=== PATIENT | male | born 1995 | race Caucasian/White ===

== ENCOUNTER 2018-12-15 00:11 | Emergency (ER) | payer SELFPAY ==
[2018-12-15 00:47] LABS: ABSOLUTE BASOPHILS # (AUTO) 0.1 10^3/uL (0.0-0.2); ABSOLUTE EOSINOPHILS # (AUTO) 0.6 10^3/uL (0.0-0.6); ABSOLUTE LYMPHOCYTES (AUTO) 1.6 10^3/uL (0.5-4.7); ABSOLUTE MONOCYTES (AUTO) 1.2 10^3/uL (0.1-1.4); ABSOLUTE NEUT (AUTO) 7.6 10^3/uL (1.7-8.2); EOSINOPHILS % (AUTO) 5.3 % (0-6); HEMATOCRIT 42.5 % (37.9-51.0); LYMPHOCYTES % (AUTO) 14.5 % (13-45); MEAN CORPUSCULAR HEMOGLOBIN 31.9 pg (27.0-33.4); MEAN CORPUSCULAR HGB CONC 35.3 g/dL (32.0-36.0); MEAN CORPUSCULAR VOLUME 90 fl (80-97); MONOCYTES % (AUTO) 10.6 % (3-13); PLATELET COUNT 289 10^3/uL (150-450); SEGMENTED NEUTROPHILS % (AUTO) 68.6 % (42-78); TOTAL CELLS COUNTED % (AUTO) 100 %
[2018-12-15] MEDS ORDERED: METOCLOPRAMIDE HCL INJ/PF 10 MG/2 ML SDV IV ONE (00:54)
[2018-12-15] MEDS ORDERED: FAMOTIDINE INJ/PF 20 MG/2 ML SDV IV ONE (00:54)
[2018-12-15] MEDS ORDERED: NORMAL SALINE 1000 ML 1,000 ML IV ONE ×2 (00:54→01:56)
--- NOTE | 2018-12-15 00:59 | ER Document Report ---
ED General - General Chief Complaint: Abdominal Pain Stated Complaint: ABDOMINAL PAIN Time Seen by Provider: 12/15/18 00:34 Notes: Patient is a 23-year-old male without chronic medical problems, has a prior surgical history of an appendectomy in the remote past, presents with 4 days of epigastric and left upper quadrant abdominal pain with associated nausea, vomiting and diarrhea. Patient describes upper abdominal pain as being a cramping, burning, aching pain worsened dramatically by any attempt at eating. He states that if he eats head doubles him over and prompt vomiting. Has tried taking vitamins and Pepto-Bismol at home without any improvement. No history of similar symptoms in the past. Does not have a primary care physician. Has had bowel movements. States he has felt warm but no recorded fever at home. Past Medical History - General Information source: Patient - Social History Smoking Status: Never Smoker Frequency of alcohol use: None Drug Abuse: None Lives with: Alone Family History: Reviewed & Not Pertinent Review of Systems - Review of Systems Notes: Constitutional: Negative for fever. HENT: Negative for sore throat. Eyes: Negative for visual changes. Cardiovascular: Negative for chest pain. Respiratory: Negative for shortness of breath. Gastrointestinal: Positive for abdominal pain, vomiting and diarrhea Genitourinary: Negative for dysuria. Musculoskeletal: Negative for back pain. Skin: Negative for rash. Neurological: Negative for headaches, weakness or numbness. 10 point ROS negative except as marked above and in HPI. Physical Exam - Vital signs Vitals: Temp Pulse Resp BP Pulse Ox 98 F 107 H 21 H 150/81 H 96 12/15/18 00:24 12/15/18 00:24 12/15/18 00:24 12/15/18 00:24 12/15/18 00:24 Interpretation: Hypertensive, Tachycardic Notes: PHYSICAL EXAMINATION: GENERAL: Appears moderately unwell but in no acute distress HEAD: Atraumatic, normocephalic. EYES: Pupils equal round and reactive to light, extraocular movements intact, sclera anicteric, conjunctiva are normal. ENT: nares patent, oropharynx clear without exudates. Moderately dry mucous membranes. NECK: Normal range of motion, supple without lymphadenopathy LUNGS: Breath sounds clear to auscultation bilaterally and equal. No wheezes rales or rhonchi. HEART: Regular tachycardia without murmurs ABDOMEN: Soft, tenderness to palpation of the right upper quadrant, epigastric and left upper quadrant. No other localized areas of tenderness. Normoactive bowel sounds. No guarding, no rebound. No masses appreciated. EXTREMITIES: Normal range of motion, no pitting or edema. No cyanosis. NEUROLOGICAL: No focal neurological deficits. Moves all extremities spontaneously and on command. PSYCH: Normal mood, normal affect. SKIN: Mild pallor, clammy skin. No rashes or lesions. Course - Re-evaluation Re-evalutation: 12/15/18 00:58 Patient presents with upper abdominal pain, nausea and vomiting worsened by any attempt at eating. Abdominal exam shows focal tenderness the right upper quadrant and epigastrium without rebound or guarding. Patient is somewhat ill in appearance. Mildly tachycardic at time of initial assessment. Patient will undergo laboratory assessment, right upper quadrant ultrasound 12/15/18 01:26 Labs demonstrate marketed LFT derangements worrisome for possible choledocholithiasis. Ultrasound pending. 12/15/18 01:52 Right upper quadrant ultrasound without any evidence of cholecystitis or choledocholithiasis. It is possible patient could have developed an acute hepatitis such as hepatitis A particular given the picture of diarrhea with substantial LFT derangements. Hepatitis panel pending. Will discuss with the hospitalist for admission given the patient's degree of pain, vomiting, inability to tolerate oral intake and for trending of LFTs. 12/15/18 02:49 CT scan of the abdomen and pelvis unremarkable. Clinical history unlikely to be localized colitis, suspect this is artifact as radiologist as discussed. Most probable diagnosis at this point appears to be a viral hepatitis. This panel is pending. I did discuss with the hospitalist on-call Dr. Nehemiah Paniagua. He states that patient does not require hospitalization, conservative management as an outpatient is recommended. I believe this is a reasonable plan as patient has been able to tolerate oral intake, has primary care follow-up, and pain has been controlled here in the emergency department. I have strongly advised the patient that if his pain worsens, he has persistent vomiting, has any change in symptoms of any kind he is to return to the emergency room immediately. I also instructed them he is to follow-up with his primary doctor within 24 hours for a recheck of his abdomen. I have also asked that he have his liver functions retested. The patient denies any risk factors for hepatitis B or C, suspect possible hepatitis A. At this time will discharge with return precautions and follow-up recommendations. Verbal discharge instructions given a the bedside and opportunity for questions given. Medication warnings reviewed. Patient is in agreement with this plan and has verbalized understanding of return precautions and the need for primary care follow-up in the next 24 hours. - Vital Signs Vital signs: Temp Pulse Resp BP Pulse Ox 98 F 107 H 21 H 150/81 H 96 12/15/18 00:24 12/15/18 00:24 12/15/18 00:24 12/15/18 00:24 12/15/18 00:24 - Laboratory Result Diagrams: 12/15/18 00:40 12/15/18 00:40 Laboratory results interpreted by me: 12/15/18 12/15/18 12/15/18 00:40 00:40 01:10 WBC 11.0 H Glucose 114 H Total Bilirubin 3.2 H Direct Bilirubin 2.0 H AST 182 H ALT 326 H Alkaline Phosphatase 310 H Lipase 715.3 H Urine Bilirubin MODERATE H Urine Urobilinogen 4.0 H Urine Ascorbic Acid 20 H Discharge - Discharge Clinical Impression: Hepatitis, Nausea vomiting and diarrhea, Upper abdominal pain Condition: Good Disposition: HOME, SELF-CARE Additional Instructions: As we discussed today, your ultrasound and CT scan are normal. Your labs however do show abnormal changes to your liver functions as well as mild pancreatitis. This is likely due to a viral hepatitis. The labs for this are pending. If you develop worsening of your pain, become unable to tolerate flu ids, begin having fever of greater than 100.4 F, he developed a yellow discoloration of your eyes or skin, pass out, or have any new or worrisome symptoms I would like you to return to the emergency department immediately. As we discussed please follow-up in urgent care or your primary doctor's office for recheck of your liver functions and a reexamination of the abdomen within 24 hours. If you have any other questions please feel free to contact me on my personal cell phone [phone]. You may take Zofran as needed for nausea. Take Tylenol 650 mg every 6 hours as needed for pain and one [place] tablet every 4 hours as needed for pain not controlled by Tylenol.
[2018-12-15 01:07] LABS: ALANINE AMINOTRANSFERASE 326 U/L (21-72); ALBUMIN 4.7 g/dL (3.5-5.0); ALKALINE PHOSPHATASE 310 U/L (38-126); ANION GAP 13 (5-19); ASPARTATE AMINO TRANSFERASE 182 U/L (17-59); BILIRUBIN,TOTAL 3.2 mg/dL (0.2-1.3); BLOOD UREA NITROGEN 14 mg/dL (7-20); CALCIUM 9.8 mg/dL (8.4-10.2); CARBON DIOXIDE 27 mmol/L (22-30); CHLORIDE 104 mmol/L (98-107); GLUCOSE 114 mg/dL (75-110); LIPASE 715.3 U/L (23-300); POTASSIUM 3.9 mmol/L (3.6-5.0); SODIUM 143.5 mmol/L (137-145); TOTAL PROTEIN 7.4 g/dL (6.3-8.2)
[2018-12-15 01:27] LABS: APPEARANCE,URINE CLEAR; BILIRUBIN,URINE MODERATE (NEGATIVE); GLUCOSE, URINE NEGATIVE (NEGATIVE); KETONES,URINE NEGATIVE (NEGATIVE); LEUKOCYTE ESTERASE,URINE NEGATIVE (NEGATIVE); NITRITE,URINE NEGATIVE (NEGATIVE); PROTEIN,URINE NEGATIVE (NEGATIVE)
[2018-12-15 01:30] LABS: COLOR,URINE DARK YELLOW
--- NOTE | 2018-12-15 01:46 | RADIOLOGY REPORT (SQ) ---
EXAM DESCRIPTION: US ABDOMEN LIMITED COMPLETED DATE/TME: 12/15/2018 00:34 CLINICAL HISTORY: 23 years Male, upper abdominal pain Comparison: None. LIMITATIONS: None. FINDINGS: Gallbladder, negative sonographic Roland's test, liver, a 0.3-cm diameter common bile duct, no intrahepatic ductal dilation, 12S-cm right kidney, partially obscured pancreas, visualized vasculature/abdominal aorta, and no significant ascites appear otherwise unremarkable. IMPRESSION: Normal RUQ-Abdominal Sonogram.
[2018-12-15] MEDS ORDERED: MORPHINE SULFATE 10 MG/ML INJ IV PRN (01:52)
--- NOTE | 2018-12-15 02:28 | RADIOLOGY REPORT (SQ) ---
CLINICAL HISTORY: lft derrangments, nausea/vomiting COMPARISON: None. TECHNIQUE: CT ABDOMEN PELVIS WITH IV CONTRAST on 12/15/2018 1:55 AM [facility] This exam was performed according to our departmental dose-optimization program, which includes automated exposure control, adjustment of the mA and/or kV according to patient size and/or use of iterative reconstruction technique. FINDINGS: Lower lungs are clear. Abdomen: The liver is normal in appearance. There is no biliary dilatation. Gallbladder is normal in appearance. There is tiny hiatal hernia. The pancreas and spleen are normal in appearance. The adrenal glands and kidneys are unremarkable. Abdominal aorta is normal in course and caliber without aneurysm. There is no free air. There is no retroperitoneal adenopathy. Pelvis: There are postoperative changes of the right colon. There is mild focal thickening of the proximal transverse colon. This may however be artifactual. Urinary bladder is unremarkable. There is no free fluid. Skeleton: There are no acute osseous findings. No suspicious bony lesions. IMPRESSION: Questionable mild thickening of the proximal transverse colon with evidence of postoperative changes of right colon. No definite acute inflammatory process.
[2018-12-15] MEDS ORDERED: ONDANSETRON ODT 4 MG TAB (6 TAB/ER DISP) PO PRN (02:52)
[2018-12-15] MEDS ORDERED: HYDROCODONE/ACETAMINOPHEN 5-325 MG (6 TAB/ER DISP) PO PRN (02:52)
[2018-12-15] MEDS ORDERED: KETOROLAC TROMETHAMINE INJ/PF 30 MG/1 ML SDV IV ONE (02:53)
[2018-12-15 03:16] VITALS: BP 135/67
== END 2018-12-15 03:16 | disposition home or self-care (01) ==
LOC: ER 00:11
DX: K75.9 Inflammatory liver disease, unspecified (principal); R11.2 Nausea with vomiting, unspecified; R19.7 Diarrhea, unspecified; R10.10 Upper abdominal pain, unspecified
CPT/HCPCS: 99284; 96361; 96374; 96375; 36415; 83690; 85025; 80053; 81001; 76705; 74177; J1885; J2765; J7030; S0028

== ENCOUNTER 2018-12-17 15:20 | Emergency (ER) | payer SELFPAY ==
[2018-12-17 15:33] VITALS: BP 132/86
--- NOTE | 2018-12-17 18:10 | ER Document Report ---
ED Medical Screen (RME) - General Chief Complaint: Abdominal Pain Stated Complaint: ABDOMINAL PAIN Time Seen by Provider: 12/17/18 17:56 Mode of Arrival: Ambulatory Information source: Patient Notes: Patient is a 23-year-old male who presents to the emergency department with chief complaint of upper abdominal pain, nausea and vomiting. Patient reports he was seen here several days ago and diagnosed with pancreatitis and possible viral hepatitis. Patient states he was told to return if his symptoms persisted or worsened. Patient reports he continues to have pain which she states was in itially in the left upper quadrant and has now moved over to the right upper quadrant as well. Patient denies any diarrhea, states he is having normal bowel movements. Denies any fevers. States he is taking all medications as prescribed. Exam: Upper abdominal tenderness with palpation to right upper and left upper quadrants. Patient calm, cooperative, laughing with staff during interview with no acute distress noted. I have greeted and performed a rapid initial assessment of this patient. A comprehensive ED assessment and evaluation of the patient, analysis of test results and completion of the medical decision making process will be conducted by additional ED providers. Dictation of this chart was performed using voice recognition software; therefore, there may be some unintended grammatical errors. TRAVEL OUTSIDE OF THE [place] IN LAST 30 DAYS: No - Related Data Allergies/Adverse Reactions: No Known Allergies Allergy (Verified 12/17/18 15:23) Past Medical History - Social History Frequency of alcohol use: None Drug Abuse: None Renal/ Medical History: Denies: Hx Peritoneal Dialysis Past Surgical History: Reports: Hx Appendectomy Physical Exam - Vital signs Vitals: Temp Pulse Resp BP Pulse Ox 98.1 F 80 18 132/86 H 98 12/17/18 15:31 12/17/18 15:31 12/17/18 15:31 12/17/18 15:31 12/17/18 15:31 Course - Vital Signs Vital signs: Temp Pulse Resp BP Pulse Ox 98.1 F 80 18 132/86 H 98 12/17/18 15:31 12/17/18 15:31 12/17/18 15:31 12/17/18 15:31 12/17/18 15:31
[2018-12-17 19:11] LABS: APPEARANCE,URINE CLEAR; BILIRUBIN,URINE NEGATIVE (NEGATIVE); COLOR,URINE YELLOW; GLUCOSE, URINE NEGATIVE (NEGATIVE); KETONES,URINE NEGATIVE (NEGATIVE); LEUKOCYTE ESTERASE,URINE NEGATIVE (NEGATIVE); NITRITE,URINE NEGATIVE (NEGATIVE); PROTEIN,URINE NEGATIVE (NEGATIVE); UROBILINOGEN,URINE NEGATIVE mg/dL (<2.0)
[2018-12-17 19:16] LABS: ABSOLUTE BASOPHILS # (AUTO) 0.1 10^3/uL (0.0-0.2); ABSOLUTE EOSINOPHILS # (AUTO) 0.3 10^3/uL (0.0-0.6); ABSOLUTE LYMPHOCYTES (AUTO) 1.8 10^3/uL (0.5-4.7); ABSOLUTE NEUT (AUTO) 6.3 10^3/uL (1.7-8.2); BASOPHILS % (AUTO) 1.2 % (0-2); EOSINOPHILS % (AUTO) 3.3 % (0-6); HEMATOCRIT 43.1 % (37.9-51.0); MEAN CORPUSCULAR HEMOGLOBIN 31.7 pg (27.0-33.4); MEAN CORPUSCULAR HGB CONC 34.9 g/dL (32.0-36.0); MEAN CORPUSCULAR VOLUME 91 fl (80-97); MONOCYTES % (AUTO) 10.9 % (3-13); PLATELET COUNT 301 10^3/uL (150-450); RED BLOOD COUNT 4.73 10^6/uL (4.35-5.55); SEGMENTED NEUTROPHILS % (AUTO) 65.6 % (42-78); TOTAL CELLS COUNTED % (AUTO) 100 %; WHITE BLOOD COUNT 9.5 10^3/uL (4.0-10.5)
[2018-12-17 19:38] LABS: ALANINE AMINOTRANSFERASE 178 U/L (21-72); ALBUMIN 4.6 g/dL (3.5-5.0); ALKALINE PHOSPHATASE 318 U/L (38-126); ANION GAP 12 (5-19); ASPARTATE AMINO TRANSFERASE 110 U/L (17-59); BILIRUBIN,DIRECT 1.6 mg/dL (0.0-0.4); BILIRUBIN,TOTAL 2.3 mg/dL (0.2-1.3); BLOOD UREA NITROGEN 14 mg/dL (7-20); CALCIUM 9.7 mg/dL (8.4-10.2); CARBON DIOXIDE 27 mmol/L (22-30); CHLORIDE 103 mmol/L (98-107); GLUCOSE 87 mg/dL (75-110); LIPASE 1446.1 U/L (23-300); POTASSIUM 4.7 mmol/L (3.6-5.0); SODIUM 142.4 mmol/L (137-145); TOTAL PROTEIN 7.5 g/dL (6.3-8.2)
[2018-12-17] MEDS ORDERED: HYDROCODONE/ACETAMINOPHEN 5-325 MG TABLET PO ONE (22:30)
[2018-12-17] MEDS ORDERED: ONDANSETRON 4 MG TAB.RAPDIS PO ONE (22:30)
--- NOTE | 2018-12-17 23:04 | ER Document Report ---
ED GI/ - General Chief Complaint: Abdominal Pain Stated Complaint: ABDOMINAL PAIN Time Seen by Provider: 12/17/18 21:37 Mode of Arrival: Ambulatory Information source: Patient Notes: HISTORY OF PRESENT ILLNESS: Patient is a 23-year-old male with a past medical history of "hepatitis" diagnos ed 2 days ago who presents with continued pain and nausea in his upper stomach related to an episode of similar symptoms that began 2 days ago. Patient was seen in the emergency department and diagnosed with abdominal pain secondary to possible hepatitis. He had a normal CT scan and right upper quadrant ultrasound performed at that time. Location: Epigastric area Onset: Sudden Alleviation: None Provocation: Eating Quality: Stabbing, sharp, burning Radiation: Around to the back Severity: Currently mild, moderate at its worst Timing: Intermittent History of abdominal surgery: None Associated symptoms: Mild nausea but no vomiting, normal bowel movements, no fevers or chills Last bowel movement: Today and normal REVIEW OF SYSTEMS: CONSTITUTIONAL : Denies fever or chills, no sweats. Denies recent illness. EENT: Denies eye, ear, throat, or mouth pain or symptoms. Denies nasal or sin us congestion. CARDIOVASCULAR: Denies chest pain. Denies swelling of the legs. RESPIRATORY: Denies cough, cold, or chest congestion. Denies shortness of breath or difficulty breathing. Denies wheezing. GASTROINTESTINAL: Positive for abdominal pain. Positive for nausea but no vomiting or diarrhea. Denies constipation. GENITOURINARY: Denies difficulty urinating, painful urination, burning, daja quency, or blood in urine. FEMALE GENITOURINARY: Denies vaginal bleeding, abnormal or irregular periods. MUSCULOSKELETAL: Denies neck or back pain or joint pain or swelling. SKIN: Denies rash or skin lesions. HEMATOLOGIC : Denies easy bruising or bleeding. LYMPHATIC: Denies swollen, enlarged glands. NEUROLOGICAL: Denies altered mental status or loss of consciousness. Denies headache. Denies weakness or paralysis or loss of use of either side. Denies problems with gait or speech. Denies sensory or motor loss. PSYCHIATRIC: Denies anxiety or stress or depression. All other systems reviewed and negative. PHYSICAL EXAMINATION: GENERAL: Well-appearing, well-nourished and in no acute distress. HEAD: Atraumatic, normocephalic. No scalp deformity, depression, or crepitance. EYES: Pupils are 3 mm and equal/round/reactive to light, extraocular movements intact, sclera anicteric, conjunctiva are normal. ENT: Nares patent bilaterally, oropharynx. Moist mucous membranes. No tonsil hypertrophy. NECK: Normal range of motion, supple without lymphadenopathy. LUNGS: Breath sounds present, equal, and clear to auscultation bilaterally. No wheezes, rales, or rhonchi. HEART: Regular rate and rhythm without murmurs, rubs, or gallops. 2+ peripheral pulses. Normal capillary refill. ABDOMEN: Soft, nondistended. Mild epigastric tenderness without peritoneal signs. Normoactive bowel sounds. No guarding, no rebound. No masses appreciated. BACK: Normal contour, no midline tenderness. Rectal exam deferred. GENITAL: Deferred. EXTREMITIES: Normal range of motion, no pitting or edema. No cyanosis. NEUROLOGICAL: No focal neurological deficits. Moves all extremities spontaneously and on command. PSYCH: Normal mood, normal affect. No suicidal thoughts/ideations. No homocidal thoughts/ideations. No hallucinations. SKIN: Warm, dry, normal turgor, no rashes or lesions noted. ASSESSMENT AND PLAN: This patient is a 23-year-old male who presents with continued abdominal pain and nausea in the setting of recent diagnosis of "hepatitis" [address] scan/right upper quadrant ultrasound. However, at that time patient had mild elevation in his total and direct bilirubin. 1. Will obtain repeat labs and reassess.. 2. Will will be given oral [place] as well as Zofran. TRAVEL OUTSIDE OF THE [place] IN LAST 30 DAYS: No - Related Data Allergies/Adverse Reactions: No Known Allergies Allergy (Verified 12/17/18 15:23) Past Medical History - General Information source: Patient - Social History Smoking Status: Current Every Day Smoker Chew tobacco use (# tins/day): No Frequency of alcohol use: None Drug Abuse: None Lives with: Family Family History: Reviewed & Not Pertinent Patient has suicidal ideation: No Patient has homicidal ideation: No - Medical History Medical History: Negative - Past Medical History Cardiac Medical History: Reports: None Pulmonary Medical History: Reports: None EENT Medical History: Reports: None Neurological Medical History: Reports: None Endocrine Medical History: Reports: None Renal/ Medical History: Reports: None. Denies: Hx Peritoneal Dialysis Malignancy Medical History: Reports None GI Medical History: Reports: None Musculoskeletal Medical History: Reports None Skin Medical History: Reports None Psychiatric Medical History: Reports: None Traumatic Medical History: Reports: None Infectious Medical History: Reports: None Past Surgical History: Reports: Hx Appendectomy - Immunizations Immunizations up to date: Yes Hx Diphtheria, Pertussis, Tetanus Vaccination: Yes History of Influenza Vaccine for 07/2017 - 12/2017 Season: Unknown Physical Exam - Vital signs Vitals: Temp Pulse Resp BP Pulse Ox 98.1 F 80 18 132/86 H 98 12/17/18 15:31 12/17/18 15:31 12/17/18 15:31 12/17/18 15:31 12/17/18 15:31 Course - Re-evaluation Re-evalutation: 12/18/18 01:37 Repeat labs show overall improvement, however the patient has persistent elevation of his lipase that has doubled since 2 days ago. Etiology is unclear, as the patient is nonalcoholic and does not have a gallstone, also has no history of hypertriglyceridemia. Patient was instructed to follow-up with a GI doctor and was informed to have strict bowel rest with a clear liquid diet until then. Patient will be discharged home with return precautions and follow-up. Patient voices both understanding and agreeing with the plan. - Vital Signs Vital signs: Temp Pulse Resp BP Pulse Ox 98.1 F 80 18 132/86 H 98 12/17/18 15:31 12/17/18 15:31 12/17/18 15:31 12/17/18 15:31 12/17/18 15:31 - Laboratory Result Diagrams: 12/17/18 18:57 12/17/18 18:57 Laboratory results interpreted by me: 12/17/18 18:57 Total Bilirubin 2.3 H Direct Bilirubin 1.6 H AST 110 H ALT 178 H Alkaline Phosphatase 318 H Lipase 1446.1 H - Diagnostic Test Radiology reviewed: Image reviewed, Reports reviewed Discharge - Discharge Clinical Impression: Abdominal pain Qualifiers: Abdominal location: epigastric Qualified Code(s): R10.13 - Epigastric pain Acute pancreatitis Qualifiers: Pancreatitis type: unspecified pancreatitis type Acute pancreatitis complication: unspecified Qualified Code(s): K85.90 - Acute pancreatitis without necrosis or infection, unspecified Condition: Good Disposition: HOME, SELF-CARE Instructions: Pancreatitis ([facility]) Additional Instructions: You have been evaluated in the Emergency Department for continued abdominal pain and nausea related to pancreatitis. You have been given prescriptions for new medications, please take these as instructed. Please follow-up with your primary physician as instructed as soon as possible to be referred to the deputy commissioner. Return to the Emergency Department if you experience worsening pain, high fevers, jaundice/yellowing of the skin, or any other concerning symptoms. Prescriptions: Hydrocodone/Acetaminophen [[place] 5-325 mg Tablet] 1 tab PO Q6HP PRN #20 tablet PRN Reason: For Pain Ondansetron [Zofran Odt 4 mg Tablet] 1 tab PO Q6HP PRN #30 tab.rapdis PRN Reason: For Nausea/Vomiting Print Language: Persian
[2018-12-19 03:37] LABS: HEPATITIS A AB IGM Negative (Negative); HEPATITIS B CORE AB IGM Negative (Negative); HEPATITS B SURFACE ANTIGEN Negative (Negative)
[2018-12-19 07:15] LABS: HEPATITIS C VIRUS ANTIBODY <0.1 s/co ratio (0.0-0.9)
== END 2018-12-17 23:15 | disposition home or self-care (01) ==
LOC: ER 15:20 → EDSTATUS 16:09 → LC 16:12 → ER 16:12 → EDSTATUS 17:32 → ER 23:15
DX: R10.13 Epigastric pain (principal); K85.90 Acute pancreatitis without necrosis or infection, unspecified; F17.200 Nicotine dependence, unspecified, uncomplicated
CPT/HCPCS: 99284; 36415; 83690; 85025; 80053; 81001; 80074; S0119